=== PATIENT | male | born 1980 | race Caucasian/White ===

== ENCOUNTER 2021-03-15 14:34 | Emergency (ER) | payer MEDICAID ==
[~2021-03-15] VITALS: Ht 188 cm; Wt 103.1 kg
[2021-03-15 14:37] VITALS: BP 120/84
[2021-03-15] MEDS ORDERED: OLAN15TA3 PO (14:44)
[2021-03-15] MEDS ORDERED: DIVA-81 PO (14:44)
== END 2021-03-15 14:52 | disposition home or self-care (01) ==
LOC: ER 14:35
DX: Z76.0 Encounter for issue of repeat prescription (principal); F31.9 Bipolar disorder, unspecified; F20.9 Schizophrenia, unspecified; Z79.899 Other long term (current) drug therapy
CPT/HCPCS: 99281

== ENCOUNTER 2021-04-09 16:38 | Emergency (ER) | payer MEDICAID ==
[~2021-04-09 16:38] MED LIST: DIVA-81 PO; OLAN15TA3 PO
== END 2021-04-09 16:56 | disposition left against medical advice (07) ==
LOC: ER 16:38
DX: Z53.21 Procedure and treatment not carried out due to patient leaving prior to being seen by health care provider (principal)